=== PATIENT | male | born 1940 | race Caucasian/White ===

== ENCOUNTER → 2020-07-29 11:06 | Outpatient (CLI) | payer OTHER, SELFPAY ==
[2020-07-30 13:23] LABS: COVID19 Sendout Not Detected (Not Detect)
== END ==
PROVIDERS: Visit Provider Nurse Practitioner
DX: Z11.59 Encounter for screening for other viral diseases (principal)
CPT/HCPCS: 87635

== ENCOUNTER → 2020-08-29 13:32 | Outpatient (CLI) | payer OTHER, SELFPAY ==
--- NOTE | 2020-08-29 | DI.ECHO.S_ITS ---
[facility] +---------+ : : [address] : [place] : : : : [id number] : : : : Phone: [phone]---------+ Echocardiogram Report + + :Name: EMPERATRIZ SANDERS Study Date: 08/29/2020 Height: 72 in : :[facility] Weight: 192 lb : : Gender: Male BSA: 2.1 m2 : :: 1940 Age: 79 yrs BP: 132/65 mmHg: :Reason For Study: SHORTNESS OF BREATH : : Performed By: Orlin Angel : :Referring: [email or web address] : + + Interpretation Summary The ejection fraction is estimated to be 60-65%. The left atrium is severely dilated. There is minimally reduced leaflet mobility. There is no hemodynamically significant valvular aortic stenosis. There is mild tricuspid regurgitation. Procedure: A two-dimensional transthoracic echocardiogram with color flow and Doppler was performed. The study quality was technically adequate. There is no prior echocardiogram noted for this patient. The patient was in normal sinus rhythm during the exam. Left Ventricle: The left ventricle is normal in size. There is normal left ventricular wall thickness. The ejection fraction is estimated to be 60-65%. Right Ventricle: The right ventricle is normal in size and function. Atria: The left atrium is severely dilated. Right atrial size is normal. Mitral Valve: The mitral valve is normal in structure and function. There is no mitral regurgitation noted. Aortic Valve: The aortic valve is trileaflet. The aortic valve is mildly calcified. There is minimally reduced leaflet mobility. There is no hemodynamically significant valvular aortic stenosis. No aortic regurgitation is present. Tricuspid Valve: The tricuspid valve is normal in structure and function. There is mild tricuspid regurgitation. Pulmonic Valve: The pulmonic valve is not well visualized. There is trace pulmonic regurgitation. Great Vessels: The aortic root is normal size. The ascending aorta is mildly enlarged. The pulmonary artery is normal size. The IVC is dilated (diameter is greater than 2.1 cm) yet it collapses greater than 50% with a sniff. This suggests a right atrial pressure of 8 mm Hg. Pericardium/ Pleura There is no pericardial effusion. There is no pleural effusion. MMode/2D Measurements & Calculations LVIDd: 4.5 cm LVOT diam: 2.5 cm LVIDs: 3.2 cm Ao root diam: 4.2 cm FS: 29.1 % asc Aorta Diam: 3.6 cm EPSS: 0.67 cm Ao Arch Diam (Prox Trans): 2.9 cm IVSd: 1.1 cm LVPWd: 0.89 cm LV kennedy. diameter/BSA (cm/m^2): 2.1 LV sys. diameter/BSA (cm/m^2): 1.5 LA dimension: 3.4 cm RA long axis: 4.8 cm LA A2 area: 27.8 cm2 RA area: 17.7 cm2 LA A4 area: 24.5 cm2 RA vol: 55.8 ml LA length (vol): 5.7 cm RA : 26.6 ml/m2 LA vol: 101.4 ml IVC diam: 2.3 cm LA vol index: 48.4 ml/m2 RVD1 (basal): 4.2 cm RVD2 (mid): 4.1 cm Doppler Measurements & Calculations Ao V2 max: 182.1 cm/sec LVOT Max Ramsey: 114.9 cm/sec Ao V2 mean: 138.7 cm/sec LV V1 max P.3 mmHg Ao max P.3 mmHg LV V1 VTI: 22.5 cm Ao mean P.3 mmHg LUI(I,D): 3.0 cm2 Ao V2 VTI: 36.9 cm LUI(V,D): 3.1 cm2 sev ratio: 0.61 LUI indexed to BSA (cm^2/m^2): 1.4 MV E max ramsey: 70.1 cm/sec TR max ramsey: 213.3 cm/sec MV A max ramsey: 79.9 cm/sec TR max P.2 mmHg MV E/A: 0.88 PA V2 max: 83.3 cm/sec Med Peak E' Ramsey: 5.5 cm/sec PA V2 mean: 60.6 cm/sec E/E' med: 12.8 PA mean P.6 mmHg Lat Peak E' Ramsey: 7.4 cm/sec PA pr(Accel): 17.3 mmHg E/E' lat: 9.5 E/e' average: 11.2 MV dec time: 0.20 sec SV(LVOT): 112.1 ml Reading Physician:03:01 PM
== END ==
PROVIDERS: PCP Family Medicine; Referring Provider Family Medicine; Visit Provider Nurse Practitioner
DX: I07.1 Rheumatic tricuspid insufficiency (principal); I77.89 Other specified disorders of arteries and arterioles; R06.02 Shortness of breath
CPT/HCPCS: 93306